=== PATIENT | male | born 1965 | race American Indian/Alaskan Native ===

== ENCOUNTER 2019-04-08 06:29 | Day surgery (SDC) | payer BC ==
[2019-04-08] MEDS ORDERED: LIDOCAINE MPF (2%) 20 MG/1 ML VIAL 5 ML ONE (08:00)
[2019-04-08] MEDS ORDERED: SODIUM CHLORIDE 0.9% 1000 ML 1,000 ML ONE (08:03)
[2019-04-08] MEDS ORDERED: SODIUM CHLORIDE 0.9% 1000 ML 1,000 ML IV SCH (08:15)
--- NOTE | 2019-04-08 08:18 | Anesthesia Consultation ---
Anesthesia Consult and Med Hx Date of service: 04/08/19 - Airway Anesthetic Teeth Evaluation: Good ROM Head & Neck: Adequate Mental/Hyoid Distance: Adequate Mallampati Class: Class III Intubation Access Assessment: Probably Good - Pre-Operative Health Status ASA Pre-Surgery Classification: ASA2 Proposed Anesthetic Plan: MAC - Pulmonary Hx Smoking: No - Cardiovascular System Hx Hypertension: Yes - Central Nervous System Hx Back Pain: Yes - Other Systems Hx Alcohol Use: Yes (Several drinks 3-4/week) - Additional Comments Anesthesia Medical History Comments: Patient is HIV+
--- NOTE | 2019-04-08 08:29 | Operative Report ---
Operative Report Operative Report: OPERATIVE REPORT - EGD DATE 04/08/2016 SURGERY: Upper endoscopy w/ antral biospy SURGEON: Derek Brian M.D. [employer] OPERATOR: n/a PRE OP DX: GERD, morbid obesity POST OP DX: GERD, morbid obesity TYPE OF ANESTHESIA: MAC. ESTIMATED BLOOD LOSS: None. COMPLICATIONS: None. SPECIMENS REMOVED: None. FINDINGS: 1. hiatal hernia. 2. Otherwise, normal esophagus, stomach and first portion of duodenum. INDICATIONS:INDICATION FOR PROCEDURE: Patient is a 53-year-old male with a long history of morbid obesity. He is planned to have a weight loss procedure and is here for preoperative planning EGD. PROCEDURE DETAILS: After consent was reviewed, patient was taken back to the operating room where patient was placed in the left lateral decubitus position and a bite block was placed in the mouth. After a time-out was called, MAC anesthesia was initiated. I then passed the endoscope into his oropharynx, into his esophagus, visualized the entire esophagus, which was all within normal limits. Z-line was measured at about 42 cm from the incisura. I then visualized the stomach and the first portion of the duodenum and there were no abnormalities I could clearly visualize. I then retroflexed the scope in the stomach and visualized the hiatus and I could see a hiatal hernia. A cold biopsy was taken of the antral mucosa to evaulate for h.pylori for comprehensive pre-op for bariatric surgery. I then desufflated the stomach and removed the endoscope. Patient tolerated procedure well and was transferred to recovery room in good and stable condition.
--- NOTE | 2019-04-08 08:29 | Anesthesia Day of Surgery ---
Anesthesia Day of Surgery - Day of Surgery Patient Examined: Yes Patient H&P Reviewed: Yes Patient is NPO: Yes Beta Blockers: No
--- NOTE | 2019-04-08 08:34 | Discharge Summary ---
Providers - Providers Date of Admission: 04/08/2016 Date of discharge: 04/08/19 Attending physician: LICHA LARSEN MD Primary care physician: NON DESTRUCTIVE EVALUATION TECHNICIAN Hospitalization Reason for admission: egd Condition: Good Procedures: egd Hospital course: uneventful egd as part of pre-operative work up for bariatric surgery Disposition: DC-01 TO HOME OR SELFCARE Core Measure Documentation - Palliative Care Palliative Care/ Comfort Measures: Not Applicable - Core Measures Any of the following diagnoses?: none Exam - Physical Exam Narrative exam: unchanged from pre-op exam - Constitutional Vitals: Temp Pulse Resp BP Pulse Ox 98.8 F 82 17 130/80 97 04/08/19 08:05 04/08/19 08:05 04/08/19 08:05 04/08/19 08:05 04/08/19 08:05 Plan Diet: low carbohydrate Follow up with: PRIMARY MD BARTOLO [Primary Care Provider] - 7 Days
[2019-04-08] MEDS ORDERED: PROPOFOL 200 MG/20 ML VIAL IV ONE ×2 (09:27)
[2019-04-08 10:37] VITALS: BP 128/79
--- NOTE | 2019-04-08 10:43 | Post Anesthesia Evaluation ---
- Post Anesthesia Evaluation Patient Participated: Yes Airway Patent: Yes Stable Respiratory Function: Yes Nausea/Vomiting: No Temp > 96.8F: Yes Pain Manageable: Yes Adequeate Hydration: Yes Anesthesia Complications: No
== END 2019-04-08 06:30 | disposition home or self-care (01) ==
LOC: GIO 06:29
PROVIDERS: ATTEND Surgery
DX: K21.9 Gastro-esophageal reflux disease without esophagitis (principal); K29.50 Unspecified chronic gastritis without bleeding; K30 Functional dyspepsia; K44.9 Diaphragmatic hernia without obstruction or gangrene; I10 Essential (primary) hypertension; B96.81 Helicobacter pylori [H. pylori] as the cause of diseases classified elsewhere; E66.01 Morbid (severe) obesity due to excess calories; Z79.899 Other long term (current) drug therapy; Z72.89 Other problems related to lifestyle; Z98.890 Other specified postprocedural states; Z68.36 Body mass index [BMI] 36.0-36.9, adult
CPT/HCPCS: 43239; 88305; 88342; J2704; J7030

== ENCOUNTER 2019-04-14 09:34 | Outpatient (CLI) | payer BC ==
[2019-04-14 09:52] LABS: Hemoglobin 12.2 gm/dl (11.8-15.2); Mean Corpuscular HGB Conc 33 % (32-34); Mean Corpuscular Volume 86 fl (84-94); Platelet Count 317 K/mm3 (140-440); Red Blood Count 4.31 M/mm3 (3.65-5.03)
[2019-04-14 10:16] LABS: Alanine Aminotransferase 17 units/L (7-56); Albumin 3.9 g/dL (3.9-5); BUN/Creatinine Ratio 17; Blood Urea Nitrogen 17 mg/dL (9-20); Calcium 9.6 mg/dL (8.4-10.2); Chol/HDL Ratio 3.12 %; HDL Cholesterol 40 mg/dL (40-59); Hemolysis Index 1; LDL Cholesterol,Direct 80 mg/dL (50-130)
[2019-04-14 12:07] LABS: Basophils % (Manual) 0 % (0.0-1.8); Platelet Estimate Consistent w Auto; RBC Morphology Normal; Total Cells Counted 100
== END 2019-04-14 09:35 | disposition home or self-care (01) ==
LOC: LAB 09:34
PROVIDERS: ATTEND Surgery
DX: Z01.812 Encounter for preprocedural laboratory examination (principal); K30 Functional dyspepsia; E11.9 Type 2 diabetes mellitus without complications
CPT/HCPCS: 36415; 80053; 80061; 82607; 83036; 84443; 85007; 85025

== ENCOUNTER 2019-04-20 07:50 | Outpatient (CLI) | payer BC ==
--- NOTE | 2019-05-03 02:09 | Pulmonary Function Test ---
SPIROMETRY: FVC 3.36 liters, which is 91% of the predicted. FEV1 is 2.56 liters, which is 88% of the predicted. FEV1/FVC ratio is 76. The patient's slow vital capacity is 2.96 liters, which is 76% of the predicted. The patient's MVV is 86% of the predicted. IMPRESSION: Normal spirometry. Based on this spirometry, no obstructive ventilatory impairment; however, restrictive ventilatory impairment cannot rule out based on this spirometry. JOB# [id number] RSDavina/RUI
== END 2019-04-20 07:51 | disposition home or self-care (01) ==
LOC: PF 07:50
PROVIDERS: ATTEND Surgery
DX: E66.2 Morbid (severe) obesity with alveolar hypoventilation (principal)
CPT/HCPCS: 94010

== ENCOUNTER 2021-07-18 11:52 | Outpatient (CLI) | payer BC ==
[2021-07-18 12:50] LABS: Basophils % (Auto) 0.9 % (0.0-1.8); Eosinophils # (Auto) 0.1 K/mm3 (0.0-0.4); Eosinophils % (Auto) 1.4 % (0.0-4.3); Hematocrit 36.5 % (35.5-45.6); Hemoglobin 12.3 gm/dl (11.8-15.2); Lymphocytes % (Auto) 39.6 % (13.4-35.0); Mean Corpuscular HGB Conc 34 % (32-34); Mean Corpuscular Volume 93 fl (84-94); Monocytes # (Auto) 0.6 K/mm3 (0.0-0.8); Monocytes % (Auto) 12.4 % (0.0-7.3); Platelet Count 205 K/mm3 (140-440); Red Blood Count 3.95 M/mm3 (3.65-5.03); Red Cell Distribution Width 14.6 % (13.2-15.2)
[2021-07-18 17:09] LABS: Albumin 4.1 g/dL (3.9-5); Calcium 9.7 mg/dL (8.4-10.2); Chol/HDL Ratio 1.78 %
== END 2021-07-18 11:53 | disposition home or self-care (01) ==
LOC: LAB 11:52
PROVIDERS: ATTEND Surgery
DX: Z01.812 Encounter for preprocedural laboratory examination (principal); Z13.21 Encounter for screening for nutritional disorder; Z13.29 Encounter for screening for other suspected endocrine disorder; Z13.1 Encounter for screening for diabetes mellitus; E55.9 Vitamin D deficiency, unspecified; K30 Functional dyspepsia; E66.01 Morbid (severe) obesity due to excess calories
CPT/HCPCS: 36415; 80053; 80061; 82607; 82728; 83036; 83550; 84443; 85025; 85730

== ENCOUNTER 2021-11-19 09:01 | Outpatient (CLI) | payer BC ==
--- NOTE | 2021-11-19 12:46 | Fluoroscopy Report ---
ESOPHAGRAM INDICATION / CLINICAL INFORMATION: E66.01 K30 TECHNIQUE: Esophagram was performed with double contrast barium and air. COMPARISON: None available. FINDINGS: MOTILITY: No significant abnormality. MUCOSA: No significant abnormality. MASS: None. STRICTURE: None. HIATAL HERNIA: None. REFLUX: Mild BARIUM TABLET: Tablet passed into the stomach without delay. ADDITIONAL FINDINGS: None. Fluoroscopy Time: 1.8 minutes. Fluoroscopy Images: 18. IMPRESSION: 1. Mild reflux, otherwise no significant abnormality Signer Name: Dontae Green DO Signed: 11/19/2021 12:41 PM Workstation Name: [id number]
== END 2021-11-19 09:02 | disposition home or self-care (01) ==
LOC: FLUORO 09:01
PROVIDERS: ATTEND Surgery
DX: Z01.818 Encounter for other preprocedural examination (principal); K21.9 Gastro-esophageal reflux disease without esophagitis; E66.01 Morbid (severe) obesity due to excess calories
CPT/HCPCS: 74221

== ENCOUNTER 2021-12-20 09:17 | Inpatient (IN) | payer BC ==
[2021-12-20] MEDS ORDERED: SODIUM CHLORIDE 0.9% 1000 ML 1,000 ML IV ONE (12:11)
--- NOTE | 2021-12-20 12:30 | Emergency Department Report ---
ED Chest Pain HPI - General Chief Complaint: Chest Pain Time Seen by Provider: 12/20/21 11:50 Source: patient Mode of arrival: Ambulatory Limitations: No Limitations - History of Present Illness Initial Comments: 56-year-old male with a history of hypertension and SVT currently on metoprolol and lisinopril who was sent in from cardiology office while her heart rate was noticed to be fast and is scheduled cardiac stress test this morning. Patient also reports some chest pressure. Patient mentioned that this same thing happened about a month ago and that was when it was started on metoprolol and is hydrochlorothiazide was discontinued. Patient denies any fever or chills. No shortness of breath reported. Patient also denies any other modifying or associated factors. MD Complaint: chest pain, other (palpitation ) - Related Data Home Medications Medication Instructions Recorded Confirmed Last Taken Biktarvy 50-200-25 mg (Nf) 04/08/19 04/08/19 Lisinopril/Hydrochlorothiazide 04/08/19 04/08/19 Pregabalin 04/08/19 04/08/19 valACYclovir 04/08/19 04/08/19 Previous Rx's Medication Instructions Recorded Last Taken Type Metoprolol Xl [Metoprolol 50 mg PO QDAY 30 Days #30 tablet 11/19/21 Unknown Rx SUCCINATE ER TAB] Allergies Allergy/AdvReac Type Severity Reaction Status Date / Time No Known Allergies Allergy Verified 04/08/19 08:03 Heart Score - HEART Score History: Slightly suspicious EKG: Normal Age: 45-65 Risk factors: 1-2 risk factors Troponin: < normal limit HEART Score: 2 - EKG Read Time Time EKG Completed: 10:02 EKG Read Time: 11:05 - Critical Actions Critical Actions: 0-3 pts:0.9-1.7%risk of adverse cardiac event.Candidate for discharge ED Review of Systems ROS: Stated complaint: Other details as noted in HPI Comment: All other systems reviewed and negative Cardiovascular: chest pain, palpitations ED Past Medical Hx - Past Medical History Hx Hypertension: Yes - Social History Smoking Status: Never Smoker - Medications Home Medications: Home Medications Medication Instructions Recorded Confirmed Last Taken Type Biktarvy 50-200-25 mg (Nf) 04/08/19 04/08/19 History Lisinopril/Hydrochlorothiazide 04/08/19 04/08/19 History Pregabalin 04/08/19 04/08/19 History valACYclovir 04/08/19 04/08/19 History Metoprolol Xl [Metoprolol 50 mg PO QDAY 30 Days #30 tablet 11/19/21 Unknown Rx SUCCINATE ER TAB] ED Physical Exam - General Limitations: No Limitations General appearance: alert, in no apparent distress - Head Head exam: Present: normal inspection - Eye Eye exam: Present: normal appearance Pupils: Present: normal accommodation - ENT ENT exam: Present: normal exam, normal orophraynx, mucous membranes dry - Neck Neck exam: Present: normal inspection, full ROM. Absent: tenderness - Respiratory Respiratory exam: Present: normal lung sounds bilaterally. Absent: respiratory distress, accessory muscle use - Cardiovascular Cardiovascular Exam: Present: normal rhythm, tachycardia, normal heart sounds - GI/Abdominal GI/Abdominal exam: Present: soft, normal bowel sounds. Absent: distended, tenderness - Extremities Exam Extremities exam: Present: normal inspection, normal capillary refill. Absent: full ROM, tenderness, pedal edema - Back Exam Back exam: Absent: tenderness - Neurological Exam Neurological exam: Present: alert, oriented X3 - Psychiatric Psychiatric exam: Present: normal affect, normal mood - Skin Skin exam: Present: warm, normal color ED Course Vital Signs 12/20/21 12/20/21 12/20/21 10:50 12:48 13:00 Temperature 98.9 F Pulse Rate 128 H 127 H 124 H Respiratory 18 12 18 Rate Blood Pressure 127/109 Blood Pressure 161/114 [Left] O2 Sat by Pulse 99 96 97 Oximetry 12/20/21 12/20/21 12/20/21 13:23 13:31 14:00 Temperature Pulse Rate 124 H 125 H 126 H Respiratory 15 17 Rate Blood Pressure 145/105 145/105 Blood Pressure [Left] O2 Sat by Pulse 96 96 Oximetry 12/20/21 12/20/21 12/20/21 14:30 15:00 15:30 Temperature Pulse Rate 126 H 126 H 126 H Respiratory 18 14 15 Rate Blood Pressure 143/106 136/101 136/101 Blood Pressure [Left] O2 Sat by Pulse 96 94 97 Oximetry 12/20/21 12/20/21 12/20/21 16:00 16:15 16:30 Temperature Pulse Rate 126 H 128 H 69 Respiratory 15 13 Rate Blood Pressure 136/101 151/111 136/101 Blood Pressure [Left] O2 Sat by Pulse 97 96 Oximetry 12/20/21 12/20/21 12/20/21 17:00 17:30 18:00 Temperature Pulse Rate 86 86 99 H Respiratory 12 14 15 Rate Blood Pressure 151/111 151/111 136/94 Blood Pressure [Left] O2 Sat by Pulse 97 98 96 Oximetry - Consultations Consultation #1: 12/20/21 18:51 Dr Johny FORD Consultation #2: 12/20/21 18:51 Dr Lr INOCENCIA score - Inocencia Score Age > 65: (0) No Aspirin use within the Past 7 Days: (0) No 3 or more CAD Risk Factors: (0) No 2 or more Angina events in past 24 hrs: (0) No Known CAD with more than 50% Stenosis: (0) No Elevated Cardiac Markers: (0) No ST Deviation Greater than 0.5mm: (0) No INOCENCIA Score: 0 ED Medical Decision Making - Lab Data Result diagrams: 12/20/21 12:35 12/20/21 12:35 - EKG Data -: EKG Interpreted by Dc EKG shows normal: sinus rhythm Rate: tachycardia - EKG Data 12/20/21 12:32 noted with SVT at the rate 127 bpm-- in this abnormal ECG 12/20/21 18:19 repeated ECG noted with a-flutter waves at 87 bpm -- with RBBB with prolong QT-- at this point I called and spoke with Dr Mcclain feeder tender from [facility] -- who suggested admitting patient for observation and to increase his metoprolol to 100mg BID and also to start Eliquis 5 mg BID-- Dr Lr consulted for this admission. - Medical Decision Making Here with chest pain/pressure--with palpitation noted to be SVT -- differential could be but not limited to myocardial infarction, pulmonary embolism, costochondritis, anxiety, gastritis, GERD, pancreatitis, and or pyelonephritis--in order to rule out the above-- so will go ahead and order routine cardiopulmonary work-up that include troponin, EKG, chest x-ray, BNP, CKMB, and CBC, CMP and urinalysis for any correctable infectious process or elec trolyte abnormality as a cause. Initial ECG noted with SVT at 127 bpm with history of sVT currently on metoprolol and lisinopril -- Critical care attestation.: If time is entered above; I have spent that time in minutes in the direct care of this critically ill patient, excluding procedure time. ED Disposition Clinical Impression: SVT (supraventricular tachycardia), Palpitations Atrial flutter Qualifiers: Atrial flutter type: unspecified Qualified Code(s): I48.92 - Unspecified atrial flutter Disposition: 09 ADMITTED INPATIENT Is pt being admited?: Yes Does the pt Need Aspirin: No Condition: Stable Referrals: CHARLIE CHA MD [Primary Care Provider] - 3-5 Days Time of Disposition: 18:56
[2021-12-20 13:12] LABS: Alanine Aminotransferase 59 units/L (7-56); Albumin 4.3 g/dL (3.9-5); BUN/Creatinine Ratio 14; Blood Urea Nitrogen 15 mg/dL (9-20); Calcium 8.9 mg/dL (8.4-10.2); Hemolysis Index 2
[2021-12-20 14:42] LABS: Color,Urine Yellow (Yellow)
[2021-12-20 14:51] LABS: RBC,Urine < 1.0 /HPF (0.0-6.0); WBC,Urine < 1.0 /HPF (0.0-6.0)
[2021-12-20 15:01] LABS: INR 1.04 (0.87-1.13)
[2021-12-20 15:02] LABS: Partial Thromboplastin Time 30.9 Sec. (24.2-36.6)
[2021-12-20 15:05] LABS: Amphetamine Screen,Urine Negative; Benzodiazepines Screen,Urine Negative; Cannabinoid Screen,Urine Negative; Cocaine Screen,Urine Negative; Methadone Screen,Urine Negative; Opiate Screen,Urine Negative
--- NOTE | 2021-12-20 15:33 | XRay Report ---
CHEST 2 VIEWS INDICATION: Chest Pain. COMPARISON: None FINDINGS: SUPPORT DEVICES: None. HEART: Within normal limits. LUNGS/PLEURA: No acute air space or interstitial disease. No pneumothorax. ADDITIONAL FINDINGS: None. IMPRESSION: 1. No acute findings. Signer Name: Gee Malin MD Signed: 12/20/2021 3:29 PM Workstation Name: [id number]
[2021-12-20] MEDS ORDERED: dilTIAZem 25 MG/5 ML INJ IV ONE (15:38)
[2021-12-20 16:33] LABS: Basophils % (Auto) 0.7 % (0.0-1.8); Eosinophils # (Auto) 0.1 K/mm3 (0.0-0.4); Eosinophils % (Auto) 2.8 % (0.0-4.3); Hematocrit 40.6 % (35.5-45.6); Hemoglobin 13.3 gm/dl (11.8-15.2); Lymphocytes # (Auto) 1.5 K/mm3 (1.2-5.4); Lymphocytes % (Auto) 35.8 % (13.4-35.0); Mean Corpuscular HGB Conc 33 % (32-34); Mean Corpuscular Volume 98 fl (84-94); Monocytes # (Auto) 0.3 K/mm3 (0.0-0.8); Monocytes % (Auto) 7.2 % (0.0-7.3); Platelet Count 135 K/mm3 (140-440); Red Blood Count 4.15 M/mm3 (3.65-5.03); Red Cell Distribution Width 15.4 % (13.2-15.2)
[2021-12-20] MEDS ORDERED: MORPHINE 4 MG/1 ML INJ IV PRN (18:30)
[2021-12-20] MEDS ORDERED: ONDANSETRON 4 MG/2 ML INJ IV PRN (18:30)
[2021-12-20] MEDS ORDERED: ACETAMINOPHEN 325 MG TAB PO PRN (18:30)
[2021-12-20] MEDS ORDERED: oxyCODONE /ACETAMINOPHEN 5-325MG TAB PO PRN (18:30)
--- NOTE | 2021-12-20 18:32 | History and Physical Report ---
History of Present Illness Chief complaint: My heart is beating fast History of present illness: 56 YO Male with HIV Infection, HTN, Peripheral Neuropathy presents to ED for evaluation. Patient reports "my heart is beating fast". Patient states that he was seen and evaluated in his toxicologist office and was found to have a rapid heart rate. Patient was instructed to seek further care at [facility]. Patient seen and evaluated in the emergency department. All lab and imaging studies reviewed. Patient acknowledges decreased exercise tolerance, lower extremity edema. Patient underwent EKG upon arrival to the emergency department and was found to have atrial flutter as well as clinical symptoms consistent with new onset CHF decompensation. Patient mated to telemetry and initiated on CHF protocol. Cardiology team consulted in ED. Patient admitted to telemetry due to increased risk of worsening symptoms as well as medical stabilization. Patient initiated on rate control therapy as well as therapeutic anticoagulation in the emergency department. Patient acknowledges chest palpitations but denies fever, chills, chest pain, productive cough, skin rash, recent contact, known exposure to COVID-19. No prior admission for review. All medication listed at time of admission has been reconciled. Advanced care planning conducted in ED. Past History Past Medical History: hypertension Past Surgical History: No surgical history, Other (Reviewed) Social history: single. denies: smoking, alcohol abuse, prescription drug abuse Family history: hypertension Medications and Allergies Allergies Allergy/AdvReac Type Severity Reaction Status Date / Time No Known Allergies Allergy Verified 04/08/19 08:03 Home Medications Medication Instructions Recorded Confirmed Last Taken Type Biktarvy 50-200-25 mg (Nf) 04/08/19 04/08/19 History Lisinopril/Hydrochlorothiazide 04/08/19 04/08/19 History Pregabalin 04/08/19 04/08/19 History valACYclovir 04/08/19 04/08/19 History Metoprolol Xl [Metoprolol 50 mg PO QDAY 30 Days #30 tablet 11/19/21 Unknown Rx SUCCINATE ER TAB] Review of Systems Constitutional: no weight loss, no weight gain, no fever, no chills Ears, nose, mouth and throat: no ear pain, no ear discharge, no decreased hearing, no nose pain Cardiovascular: shortness of breath, leg edema, decreased exercise tolerance, no chest pain Respiratory: no cough, no cough with sputum, no shortness of breath Gastrointestinal: no nausea, no vomiting, no constipation Genitourinary Male: no hematuria, no flank pain, no urinary frequency, no urinary hesitancy, no nocturia Rectal: no pain, no incontinence, no bleeding Musculoskeletal: no neck stiffness, no neck pain, no arm numbness/tingling, no low back pain, no shooting leg pain Integumentary: no rash, no pruritis, no redness, no sores, no wounds, no jaundice Neurological: no head injury, no transient paralysis, no parathesias, no tingling, no seizures, no syncope Psychiatric: no anxiety, no sleep disturbances, no change in appetite, no change in libido, no disorientation Endocrine: no cold intolerance, no heat intolerance, no excessive thirst, no polydipsia, no nocturia, no excessive sweating Hematologic/Lymphatic: no easy bruising, no easy bleeding, no lymphedema Allergic/Immunologic: no urticaria, no allergic rhinitis, no persistent infections Exam - Constitutional Vitals: Temp Pulse Resp BP Pulse Ox 98.9 F 99 H 15 136/94 96 12/20/21 10:50 12/20/21 18:00 12/20/21 18:00 12/20/21 18:00 12/20/21 18:00 General appearance: Present: mild distress - EENT Eyes: Present: PERRL ENT: hearing intact, clear oral mucosa - Respiratory Respiratory effort: normal Respiratory: bilateral: CTA, rales - Cardiovascular Rhythm: irregularly irregular - Extremities Extremity abnormal: edema Peripheral Pulses: within normal limits - Abdominal General gastrointestinal: Present: soft, non-tender, non-distended, normal bowel sounds Male genitourinary: Present: normal - Integumentary Integumentary: Present: clear, warm, dry - Musculoskeletal Musculoskeletal: gait normal, strength equal bilaterally - Psychiatric Psychiatric: appropriate mood/affect, intact judgment & insight - Neurologic Neurologic: CNII-XII intact, moves all extremities HEART Score - HEART Score EKG: Normal Age: 45-65 Risk factors: 1-2 risk factors Troponin: Troponin T < 0.010 ng/mL (0.00-0.029) 12/20/21 12:35 Troponin: < normal limit - Critical Actions Critical Actions: 0-3 pts:0.9-1.7%risk of adverse cardiac event.Candidate for discharge Results - Labs CBC & Chem 7: 12/20/21 12:35 12/20/21 12:35 Labs: Abnormal lab results 12/20/21 12/20/21 Range/Units 12:35 12:35 WBC 4.1 L (4.5-11.0) K/mm3 MCV 98 H (84-94) fl RDW 15.4 H (13.2-15.2) % Plt Count 135 L (140-440) K/mm3 Lymph % (Auto) 35.8 H (13.4-35.0) % Chloride 107.1 H (98-107) mmol/L Glucose 107 H (75-100) mg/dL AST 91 H (5-40) units/L ALT 59 H (7-56) units/L Assessment and Plan - Patient Problems (1) Atrial flutter Current Visit: Yes Status: Acute Qualifiers: Atrial flutter type: unspecified Qualified Code(s): I48.92 - Unspecified atrial flutter Plan to address problem: Cardiology team consulted in ED, patient, thyroid panel, further care and evaluation as per cardiology team, continue therapeutic anticoagulation as per cardiology team recommendation, supportive care. Telemetry monitoring. (2) CHF (congestive heart failure) Current Visit: Yes Status: Suspected Qualifiers: Heart failure chronicity: acute Plan to address problem: Strict I's/O, monitoring output every shift, daily weight, afterload reduction, blood pressure control, echocardiogram ordered and pending at time of admission, thyroid panel, magnesium level, cardiology team consulted in ED. Further care and evaluation as per cardiology team. (3) HIV infection Current Visit: Yes Status: Acute Qualifiers: HIV symptom status: unspecified Qualified Code(s): B20 - Human immunodeficiency virus [HIV] disease Plan to address problem: Continue antiretroviral therapy, supportive care. Outpatient infectious disease service follow-up. (4) Hypertension Current Visit: Yes Status: Acute Qualifiers: Hypertension type: primary hypertension Qualified Code(s): I10 - Essential (primary) hypertension Plan to address problem: Monitor blood pressure every shift, continue medical management (5) DVT prophylaxis Current Visit: Yes Status: Acute Plan to address problem: SCD to bilateral lower extremities while in bed (6) Advance care planning Current Visit: Yes Status: Acute Plan to address problem: Disease education data, care plan discussed, diagnosis discussed, prognosis discussed, patient is full code. Patient knowledges understanding and agreement with care plan, +30 minutes. (7) Preventative health care Current Visit: Yes Status: Acute Plan to address problem: Patient counseled regarding risk factor reduction, outpatient follow-up with primary care physician for all age and risk factor appropriate screening test. +30 minutes.
[2021-12-20 21:29] LABS: Free T4 (Free Thyroxine) 1.17 ng/dL (0.76-1.46)
[2021-12-21 06:33] LABS: BUN/Creatinine Ratio 13; Blood Urea Nitrogen 13 mg/dL (9-20); Calcium 8.7 mg/dL (8.4-10.2); Hemolysis Index 0
--- NOTE | 2021-12-21 10:02 | Consultation ---
History of Present Illness Consult date: 12/21/21 Requesting physician: CLAU CORREA Consult reason: other (atrial flutter) History of present illness: Pt is a 56-year-old male with a hx of HIV, HTN, obesity, and prior cocaine use who was sent from the office after being scheduled for a stress test but found to be tachycardic. Pt denies any cardiac complaints. He was previously followed by [facility] (Dr. Tapan Kaur) and has an upcoming consult with Dr. Ellington in our [place] office (01/13 @ 2:30pm). Pt was evaluated by Dr. Kaur on 2 instances (03/2020 & 12/2020) after being sent in from [facility] when he was noted to be in an atrial arrhythmia, which Dr. Kaur stated was difficult to distinguish (atrial fibrillation vs atrial flutter vs atrial tachycardia per Dr. Kaur's notes). Pt was not started on any AV michael blocking agents during the fi rst instance in March 2020 due to being mildly bradycardic by the time he was evaluated in the Cardiology Clinic. Pt was started on Toprol XL 50mg daily at the last office visit in December 2020. He has been taking his beta hayden regularly. He is noted to be in atrial flutter with a ventricular rate in the 120-130s upon assessment. Of note, pt was never started on oral anticoagulation due to his low CHADS-Vasc score per documentation and takes ASA only. Past History Past Medical History: arrhythmia, HIV/AIDS, hypertension Past Surgical History: denies: valve replacement, CABG, PTCA Social history: single, Lives alone, alcohol abuse (occasional), other (cocaine abuse). denies: smoking Family history: diabetes (mother), hypertension (mother) Medications and Allergies Allergies Allergy/AdvReac Type Severity Reaction Status Date / Time No Known Allergies Allergy Verified 04/08/19 08:03 Home Medications Medication Instructions Recorded Confirmed Last Taken Type Biktarvy 50-200-25 mg (Nf) 04/08/19 04/08/19 History Lisinopril/Hydrochlorothiazide 04/08/19 04/08/19 History Pregabalin 04/08/19 04/08/19 History valACYclovir 04/08/19 04/08/19 History Metoprolol Xl [Metoprolol 50 mg PO QDAY 30 Days #30 tablet 11/19/21 Unknown Rx SUCCINATE ER TAB] Active Meds: Active Medications Acetaminophen (Acetaminophen 325 Mg Tab) 650 mg PO Q4H PRN PRN Reason: Pain MILD(1-3)/Fever >100.5/TRUONG Morphine Sulfate (Morphine 4 Mg/1 Ml Inj) 2 mg IV Q4H PRN PRN Reason: Pain , Severe (7-10) Ondansetron HCl (Ondansetron 4 Mg/2 Ml Inj) 4 mg IV Q8H PRN PRN Reason: Nausea And Vomiting Oxycodone/Acetaminophen (Oxycodone /Acetaminophen 5-325mg Tab) 1 tab PO Q6H PRN PRN Reason: Pain, Moderate (4-6) Sodium Chloride (Sodium Chloride 0.9% 10 Ml Flush Syringe) 10 ml IV BID BRONSON Last Admin: 12/21/21 09:37 Dose: 10 ml Sodium Chloride (Sodium Chloride 0.9% 10 Ml Flush Syringe) 10 ml IV PRN PRN PRN Reason: LINE FLUSH Review of Systems Constitutional: no fever, no chills Ears, nose, mouth and throat: no nasal congestion, no sore throat Cardiovascular: no chest pain, no palpitations, no edema, no syncope, no lightheadedness, no shortness of breath Respiratory: no cough, no shortness of breath Gastrointestinal: no abdominal pain, no nausea Genitourinary Male: no dysuria Musculoskeletal: no myalgias Integumentary: no rash, no wounds Neurological: no numbness, no tingling, no seizures, no syncope, no vertigo Endocrine: no cold intolerance, no heat intolerance Hematologic/Lymphatic: no easy bruising, no easy bleeding Allergic/Immunologic: no anaphylaxis Physical Examination Vital Signs Temp Pulse Resp BP Pulse Ox 98.9 F 128 H 18 161/114 99 12/20/21 10:50 12/20/21 10:50 12/20/21 10:50 12/20/21 10:50 12/20/21 10:50 General appearance: no acute distress HEENT: Positive: EOMI, Normocephaly Neck: Negative: JVD/HJR Cardiac: Positive: irregularly irregular, S1/S2 Lungs: Positive: clear to auscultation Neuro: Positive: Grossly Intact Abdomen: Positive: Soft. Negative: Tender Skin: Negative: Rash Musculoskeletal: No Pain Extremities: Present: edema, warm Results 12/20/21 12:35 12/21/21 05:36 Cardiac Enzymes 12/20/21 Range/Units 12:35 AST 91 H (5-40) units/L Coagulation 12/20/21 Range/Units 12:35 PT 14.8 (12.2-14.9) Sec. INR 1.04 (0.87-1.13) APTT 30.9 (24.2-36.6) Sec. CBC 12/20/21 Range/Units 12:35 WBC 4.1 L (4.5-11.0) K/mm3 RBC 4.15 (3.65-5.03) M/mm3 Hgb 13.3 (11.8-15.2) gm/dl Hct 40.6 (35.5-45.6) % Plt Count 135 L (140-440) K/mm3 Lymph # (Auto) 1.5 (1.2-5.4) K/mm3 [place] # (Auto) 0.3 (0.0-0.8) K/mm3 Eos # (Auto) 0.1 (0.0-0.4) K/mm3 Baso # (Auto) 0.0 (0.0-0.1) K/mm3 Comprehensive Metabolic Panel 12/20/21 12/21/21 Range/Units 12:35 05:36 Sodium 142 149 H (137-145) mmol/L Potassium 4.6 3.9 (3.6-5.0) mmol/L Chloride 107.1 H 113.2 H (98-107) mmol/L Carbon Dioxide 26 26 (22-30) mmol/L BUN 15 13 (9-20) mg/dL Creatinine 1.1 1.0 (0.8-1.3) mg/dL Glucose 107 H 133 H (75-100) mg/dL Calcium 8.9 8.7 (8.4-10.2) mg/dL AST 91 H (5-40) units/L ALT 59 H (7-56) units/L Alkaline Phosphatase 107 (35-129) units/L Total Protein 6.8 (6.3-8.2) g/dL Albumin 4.3 (3.9-5) g/dL - Imaging and Cardiology Echo: pending, other (04/2020: EF 60-65%, no significant valvular abnormalities) EKG: report reviewed, image reviewed EKG interpretations - Telemetry EKG Rhythm: Atrial Flutter - EKG Supraventricular dysrhythmia: atrial flutter Assessment and Plan Assessment: ATRIAL FLUTTER WITH RVR HTN Obesity HIV+ H/o Cocaine Use Plan: Echo pending. Increase PO Lopressor 25mg TID with hold parameters. Add PO Amiodarone 400mg BID. Trend LFTs. Start Eliquis 5mg BID for CVA prophylaxis. Monitor Plts. Pt seen in conjunction with Dr. Ermelinda Agarwal, who agrees with the assessment and plan of care. - Patient Problems (1) Atrial flutter Current Visit: Yes Status: Acute Qualifiers: Qualified Code(s): I48.92 - Unspecified atrial flutter (2) History of cocaine use Current Visit: Yes Status: Chronic (3) HIV infection Current Visit: Yes Status: Chronic Qualifiers: HIV symptom status: unspecified Qualified Code(s): B20 - Human immunodeficiency virus [HIV] disease (4) Hypertension Current Visit: Yes Status: Chronic Qualifiers: Hypertension type: primary hypertension Qualified Code(s): I10 - Essential (primary) hypertension (5) Obesity Current Visit: Yes Status: Chronic
[2021-12-21] MEDS ORDERED: METOPROLOL TARTRATE 25 MG TAB PO SCH ×2 (12:00→20:00)
[2021-12-21] MEDS ORDERED: BIKTARVY PO SCH (12:00)
--- NOTE | 2021-12-21 13:42 | Progress Note ---
Assessment and Plan Assessment and plan: #Tachyarrhythmia #Atrial flutter -metoprolol 25mg BID started for rate control other agents per Cardiology service -Cardiology consulted, assistance appreciated -Echocardiogram performed, result pending -continue telemetry -systemic anticoagulation not started as outpatient since patient has CHADSVASC 1 #Hypertension -patient takes HCTZ and metoprolol at home -lisinopril discontinued when BB started -will continue with BB as above #HIV -Restart Biktarvy at home dose #Obesity #Weight loss counseling #Exercise counseling - Counseled patient on the importance of weight loss, incorporating exercise, and dietary changes (lean meats, fresh fruits and vegetables, and water intake). Patient expresses understanding. - Time: +15 min #Advanced care planning -Disease education conducted, care plan discussed, diagnoses discussed, prognosis discussed, and patient acknowledges understanding with care plan -Time: +30 min History Interval history: No acute events overnight. Patient reports dealing with tachycardia for several years. He was started on metoprolol 50 mg XL by her hand screen printer a few months ago. He denies any lightheadedness, dizziness, palpitations, or chest discomfort. We discussed current care plan and patient agreeable. Hospitalist Physical - Physical exam Narrative exam: GENERAL: Well-developed well-nourished. Sitting on the side of the bed in no acute distress. HEENT: Normocephalic. Atraumatic. NECK: Supple. CHEST/LUNGS: CTAB on room air HEART/CARDIOVASCULAR: Tachycardia. No murmur, rubs or gallops appreciated. ABDOMEN: +BS. NT/ND. SKIN: No rashes noted. NEURO: No focal motor deficit. Follows all commands. MUSCULOSKELETAL: No joint effusion EXTREMITIES: No cyanosis, clubbing. 1+ edema of BLE PSYCH: Cooperative. - Constitutional Vitals: Temp Pulse Resp BP Pulse Ox 97.9 F 129 H 22 136/101 100 12/20/21 23:56 12/20/21 23:56 12/20/21 23:56 12/20/21 23:56 12/21/21 10:00 General appearance: Present: mild distress HEART Score - HEART Score EKG: Normal Age: 45-65 Risk factors: 1-2 risk factors Troponin: Troponin T < 0.010 ng/mL (0.00-0.029) 12/20/21 12:35 Troponin: < normal limit - Critical Actions Critical Actions: 0-3 pts:0.9-1.7%risk of adverse cardiac event.Candidate for discharge Results - Labs CBC & Chem 7: 12/20/21 12:35 12/21/21 05:36 Labs: Laboratory Last Values WBC 4.1 K/mm3 (4.5-11.0) L 12/20/21 12:35 RBC 4.15 M/mm3 (3.65-5.03) 12/20/21 12:35 Hgb 13.3 gm/dl (11.8-15.2) 12/20/21 12:35 Hct 40.6 % (35.5-45.6) 12/20/21 12:35 MCV 98 fl (84-94) H 12/20/21 12:35 MCH 32 pg (28-32) 12/20/21 12:35 MCHC 33 % (32-34) 12/20/21 12:35 RDW 15.4 % (13.2-15.2) H 12/20/21 12:35 Plt Count 135 K/mm3 (140-440) L 12/20/21 12:35 Lymph % (Auto) 35.8 % (13.4-35.0) H 12/20/21 12:35 [place] % (Auto) 7.2 % (0.0-7.3) 12/20/21 12:35 Eos % (Auto) 2.8 % (0.0-4.3) 12/20/21 12:35 Baso % (Auto) 0.7 % (0.0-1.8) 12/20/21 12:35 Lymph # (Auto) 1.5 K/mm3 (1.2-5.4) 12/20/21 12:35 [place] # (Auto) 0.3 K/mm3 (0.0-0.8) 12/20/21 12:35 Eos # (Auto) 0.1 K/mm3 (0.0-0.4) 12/20/21 12:35 Baso # (Auto) 0.0 K/mm3 (0.0-0.1) 12/20/21 12:35 Seg Neutrophils % 53.5 % (40.0-70.0) 12/20/21 12:35 Seg Neutrophils # 2.2 K/mm3 (1.8-7.7) 12/20/21 12:35 PT 14.8 Sec. (12.2-14.9) 12/20/21 12:35 INR 1.04 (0.87-1.13) 12/20/21 12:35 APTT 30.9 Sec. (24.2-36.6) 12/20/21 12:35 D-Dimer < 135.00 ng/mlDDU (0-234) 12/20/21 12:35 Sodium 149 mmol/L (137-145) H 12/21/21 05:36 Potassium 3.9 mmol/L (3.6-5.0) 12/21/21 05:36 Chloride 113.2 mmol/L (98-107) H 12/21/21 05:36 Carbon Dioxide 26 mmol/L (22-30) 12/21/21 05:36 Anion Gap 14 mmol/L 12/21/21 05:36 BUN 13 mg/dL (9-20) 12/21/21 05:36 Creatinine 1.0 mg/dL (0.8-1.3) 12/21/21 05:36 Estimated GFR > 60 ml/min 12/21/21 05:36 BUN/Creatinine Ratio 13 % 12/21/21 05:36 Glucose 133 mg/dL (75-100) H 12/21/21 05:36 Calcium 8.7 mg/dL (8.4-10.2) 12/21/21 05:36 Magnesium 2.40 mg/dL (1.7-2.3) H 12/20/21 19:52 Total Bilirubin 0.50 mg/dL (0.1-1.2) 12/20/21 12:35 AST 91 units/L (5-40) H 12/20/21 12:35 ALT 59 units/L (7-56) H 12/20/21 12:35 Alkaline Phosphatase 107 units/L (35-129) 12/20/21 12:35 Troponin T < 0.010 ng/mL (0.00-0.029) 12/20/21 12:35 Total Protein 6.8 g/dL (6.3-8.2) 12/20/21 12:35 Albumin 4.3 g/dL (3.9-5) 12/20/21 12:35 Albumin/Globulin Ratio 1.7 % 12/20/21 12:35 TSH 0.954 mlU/mL (0.270-4.200) 12/20/21 19:52 Free T4 1.17 ng/dL (0.76-1.46) 12/20/21 19:52 Urine Color Yellow (Yellow) 12/20/21 12:42 Urine Turbidity Clear (Clear) 12/20/21 12:42 Specific [place] (Man) 1.010 (1.003-1.030) 12/20/21 12:42 Ur Protein (Man) 1+ mg/dL (Negative) 12/20/21 12:42 Ur Ketones (Man) Negative (Negative) 12/20/21 12:42 Urine Bilirubin (Man) Negative (Negative) 12/20/21 12:42 Urine WBC (Auto) < 1.0 /HPF (0.0-6.0) 12/20/21 12:42 Urine RBC (Auto) < 1.0 /HPF (0.0-6.0) 12/20/21 12:42 Urine RBC (Manual) Negative (Negative) 12/20/21 12:42 Urine Opiates Screen Negative 12/20/21 12:42 Urine Methadone Screen Negative 12/20/21 12:42 Ur Barbiturates Screen Negative 12/20/21 12:42 Ur Phencyclidine Scrn Negative 12/20/21 12:42 Ur Amphetamines Screen Negative 12/20/21 12:42 U Benzodiazepines Scrn Negative 12/20/21 12:42 Urine Cocaine Screen Negative 12/20/21 12:42 U Marijuana (THC) Screen Negative 12/20/21 12:42 Drugs of Abuse Note Disclamer 12/20/21 12:42 Active Medications - Current Medications Current Medications: Generic Name Dose Route Start Last Admin Trade Name Freq PRN Reason Stop Dose Admin Acetaminophen 650 mg 12/20/21 18:30 Acetaminophen 325 Mg Tab PO Q4H PRN Pain MILD(1-3)/Fever >100.5/TRUONG Dolutegravir Sodium 50 mg 12/22/21 10:00 Dolutegravir 50 Mg Tab PO QDAY [facility] Emtricitabine 200 mg 12/22/21 10:00 Emtricitabine 200 Mg Cap PO QDAY [facility] Metoprolol Tartrate 25 mg 12/21/21 12:00 12/21/21 11:05 Metoprolol Tartrate 25 Mg Tab PO 25 mg BID BRONSON Administration Morphine Sulfate 2 mg 12/20/21 18:30 Morphine 4 Mg/1 Ml Inj IV Q4H PRN Pain , Severe (7-10) Ondansetron HCl 4 mg 12/20/21 18:30 Ondansetron 4 Mg/2 Ml Inj IV Q8H PRN Nausea And Vomiting Oxycodone/Acetaminophen 1 tab 12/20/21 18:30 Oxycodone /Acetaminophen 5-325mg Tab PO Q6H PRN Pain, Moderate (4-6) Sodium Chloride 10 ml 12/20/21 22:00 12/21/21 09:37 Sodium Chloride 0.9% 10 Ml Flush Syringe IV 10 ml BID BRONSON Administration Sodium Chloride 10 ml 12/20/21 18:30 Sodium Chloride 0.9% 10 Ml Flush Syringe IV PRN PRN LINE FLUSH Tenofovir Disoproxil Fumarate 300 mg 12/22/21 10:00 Tenofovir 300 Mg Tab PO QDAY BRONSON
[2021-12-21] MEDS ORDERED: METOPROLOL TARTRATE 5 MG/5 ML INJ IV SCH (19:00)
[2021-12-21] MEDS: AMIODARONE 200 MG TAB PO SCH (21:30)
[2021-12-21] MEDS: APIXABAN 5 MG TAB PO SCH (21:30)
[2021-12-21 21:38] LABS: INR 1.08 (0.87-1.13)
[2021-12-21 21:39] LABS: Partial Thromboplastin Time 28.7 Sec. (24.2-36.6)
--- NOTE | 2021-12-22 09:54 | Progress Note ---
Assessment and Plan Assessment and plan: #Tachyarrhythmia #Atrial flutter -metoprolol increased to 37.5 mg 3 times daily, continue amiodarone -Cardiology following, assistance appreciated -Echocardiogram 12/22: EF 25-30%, severely dilated LA, moderate pulmonary HTN -continue telemetry -eliquis started for anticoagulation #Systolic heart failure -EF 25-30% -continue BB, will leave GDMT decision to Cardiology -does not appear to be in acute exacerbation at this time #Hypertension -patient take takes HCTZ at home, lisinopril discontinued when he was started on metoprolol XL -will hold HCTZ for now -continue BB as above -will continue to monitor #HIV -Restart Biktarvy at home dose #Obesity #Weight loss counseling #Exercise counseling - Counseled patient on the importance of weight loss, incorporating exercise, and dietary changes (lean meats, fresh fruits and vegetables, and water intake). Patient expresses understanding. - Time: +15 min #Advanced care planning -Disease education conducted, care plan discussed, diagnoses discussed, prognosis discussed, and patient acknowledges understanding with care plan -Time: +30 min History Interval history: No acute events overnight. Patient has no complaints at this time. We discussed medication changes and current care plan. Hospitalist Physical - Physical exam Narrative exam: GENERAL: Well-developed well-nourished. Sitting on the side of the bed in no acute distress eating breakfast. HEENT: Normocephalic. Atraumatic. CHEST/LUNGS: CTAB on room air HEART/CARDIOVASCULAR: Tachycardia. No murmur, rubs or gallops appreciated. ABDOMEN: +BS. NT/ND. SKIN: No rashes noted. NEURO: No focal motor deficit. Follows all commands. MUSCULOSKELETAL: No joint effusion EXTREMITIES: 1+ BLE edema. PSYCH: Cooperative. - Constitutional Vitals: Temp Pulse Resp BP Pulse Ox 98.0 F 124 H 18 142/98 97 12/22/21 07:51 12/22/21 07:51 12/22/21 07:51 12/22/21 07:51 12/22/21 07:51 General appearance: Present: no acute distress HEART Score - HEART Score EKG: Normal Age: 45-65 Risk factors: 1-2 risk factors Troponin: Troponin T < 0.010 ng/mL (0.00-0.029) 12/20/21 12:35 Troponin: < normal limit - Critical Actions Critical Actions: 0-3 pts:0.9-1.7%risk of adverse cardiac event.Candidate for discharge Results - Labs CBC & Chem 7: 12/20/21 12:35 12/21/21 05:36 Labs: Laboratory Last Values WBC 4.1 K/mm3 (4.5-11.0) L 12/20/21 12:35 RBC 4.15 M/mm3 (3.65-5.03) 12/20/21 12:35 Hgb 13.3 gm/dl (11.8-15.2) 12/20/21 12:35 Hct 40.6 % (35.5-45.6) 12/20/21 12:35 MCV 98 fl (84-94) H 12/20/21 12:35 MCH 32 pg (28-32) 12/20/21 12:35 MCHC 33 % (32-34) 12/20/21 12:35 RDW 15.4 % (13.2-15.2) H 12/20/21 12:35 Plt Count 135 K/mm3 (140-440) L 12/20/21 12:35 Lymph % (Auto) 35.8 % (13.4-35.0) H 12/20/21 12:35 [place] % (Auto) 7.2 % (0.0-7.3) 12/20/21 12:35 Eos % (Auto) 2.8 % (0.0-4.3) 12/20/21 12:35 Baso % (Auto) 0.7 % (0.0-1.8) 12/20/21 12:35 Lymph # (Auto) 1.5 K/mm3 (1.2-5.4) 12/20/21 12:35 [place] # (Auto) 0.3 K/mm3 (0.0-0.8) 12/20/21 12:35 Eos # (Auto) 0.1 K/mm3 (0.0-0.4) 12/20/21 12:35 Baso # (Auto) 0.0 K/mm3 (0.0-0.1) 12/20/21 12:35 Seg Neutrophils % 53.5 % (40.0-70.0) 12/20/21 12:35 Seg Neutrophils # 2.2 K/mm3 (1.8-7.7) 12/20/21 12:35 PT 15.2 Sec. (12.2-14.9) H 12/21/21 21:09 INR 1.08 (0.87-1.13) 12/21/21 21:09 APTT 28.7 Sec. (24.2-36.6) 12/21/21 21:09 D-Dimer < 135.00 ng/mlDDU (0-234) 12/20/21 12:35 Sodium 149 mmol/L (137-145) H 12/21/21 05:36 Potassium 3.9 mmol/L (3.6-5.0) 12/21/21 05:36 Chloride 113.2 mmol/L (98-107) H 12/21/21 05:36 Carbon Dioxide 26 mmol/L (22-30) 12/21/21 05:36 Anion Gap 14 mmol/L 12/21/21 05:36 BUN 13 mg/dL (9-20) 12/21/21 05:36 Creatinine 1.0 mg/dL (0.8-1.3) 12/21/21 05:36 Estimated GFR > 60 ml/min 12/21/21 05:36 BUN/Creatinine Ratio 13 % 12/21/21 05:36 Glucose 133 mg/dL (75-100) H 12/21/21 05:36 Calcium 8.7 mg/dL (8.4-10.2) 12/21/21 05:36 Magnesium 2.40 mg/dL (1.7-2.3) H 12/20/21 19:52 Total Bilirubin 0.50 mg/dL (0.1-1.2) 12/20/21 12:35 AST 91 units/L (5-40) H 12/20/21 12:35 ALT 59 units/L (7-56) H 12/20/21 12:35 Alkaline Phosphatase 107 units/L (35-129) 12/20/21 12:35 Troponin T < 0.010 ng/mL (0.00-0.029) 12/20/21 12:35 Total Protein 6.8 g/dL (6.3-8.2) 12/20/21 12:35 Albumin 4.3 g/dL (3.9-5) 12/20/21 12:35 Albumin/Globulin Ratio 1.7 % 12/20/21 12:35 TSH 0.954 mlU/mL (0.270-4.200) 12/20/21 19:52 Free T4 1.17 ng/dL (0.76-1.46) 12/20/21 19:52 Urine Color Yellow (Yellow) 12/20/21 12:42 Urine Turbidity Clear (Clear) 12/20/21 12:42 Specific [place] (Man) 1.010 (1.003-1.030) 12/20/21 12:42 Ur Protein (Man) 1+ mg/dL (Negative) 12/20/21 12:42 Ur Ketones (Man) Negative (Negative) 12/20/21 12:42 Urine Bilirubin (Man) Negative (Negative) 12/20/21 12:42 Urine WBC (Auto) < 1.0 /HPF (0.0-6.0) 12/20/21 12:42 Urine RBC (Auto) < 1.0 /HPF (0.0-6.0) 12/20/21 12:42 Urine RBC (Manual) Negative (Negative) 12/20/21 12:42 Urine Opiates Screen Negative 12/20/21 12:42 Urine Methadone Screen Negative 12/20/21 12:42 Ur Barbiturates Screen Negative 12/20/21 12:42 Ur Phencyclidine Scrn Negative 12/20/21 12:42 Ur Amphetamines Screen Negative 12/20/21 12:42 U Benzodiazepines Scrn Negative 12/20/21 12:42 Urine Cocaine Screen Negative 12/20/21 12:42 U Marijuana (THC) Screen Negative 12/20/21 12:42 Drugs of Abuse Note Disclamer 12/20/21 12:42 [place]/IV: Voiding Method Toilet Active Medications - Current Medications Current Medications: Generic Name Dose Route Start Last Admin Trade Name Freq PRN Reason Stop Dose Admin Acetaminophen 650 mg 12/20/21 18:30 Acetaminophen 325 Mg Tab PO Q4H PRN Pain MILD(1-3)/Fever >100.5/TRUONG Amiodarone HCl 400 mg 12/21/21 22:00 12/21/21 21:30 Amiodarone 200 Mg Tab PO 400 mg BID BRONSON Administration Apixaban 5 mg 12/21/21 22:00 12/21/21 21:30 Apixaban 5 Mg Tab PO 5 mg Q12HR [facility] Administration Protocol Dolutegravir Sodium 50 mg 12/22/21 10:00 Dolutegravir 50 Mg Tab PO QDAY [facility] Emtricitabine 200 mg 12/22/21 10:00 Emtricitabine 200 Mg Cap PO QDAY [facility] Metoprolol Tartrate 37.5 mg 12/22/21 09:47 Metoprolol Tartrate 25 Mg Tab PO TID [facility] Morphine Sulfate 2 mg 12/20/21 18:30 Morphine 4 Mg/1 Ml Inj IV Q4H PRN Pain , Severe (7-10) Ondansetron HCl 4 mg 12/20/21 18:30 Ondansetron 4 Mg/2 Ml Inj IV Q8H PRN Nausea And Vomiting Oxycodone/Acetaminophen 1 tab 12/20/21 18:30 Oxycodone /Acetaminophen 5-325mg Tab PO Q6H PRN Pain, Moderate (4-6) Sodium Chloride 10 ml 12/20/21 22:00 12/21/21 21:30 Sodium Chloride 0.9% 10 Ml Flush Syringe IV 10 ml BID BRONSON Administration Sodium Chloride 10 ml 12/20/21 18:30 Sodium Chloride 0.9% 10 Ml Flush Syringe IV PRN PRN LINE FLUSH Tenofovir Disoproxil Fumarate 300 mg 12/22/21 10:00 Tenofovir 300 Mg Tab PO QDAY [facility]
[2021-12-22] MEDS ORDERED: METOPROLOL TARTRATE 25 MG TAB PO SCH ×2 (12:00→14:00)
[2021-12-22] MEDS: AMIODARONE 200 MG TAB PO SCH (12:47)
[2021-12-22] MEDS: APIXABAN 5 MG TAB PO SCH ×2 (12:48→22:30)
[2021-12-22] MEDS: EMTRICITABINE 200 MG CAP PO SCH (12:48)
[2021-12-22] MEDS: DOLUTEGRAVIR 50 MG TAB PO SCH (12:51)
[2021-12-22] MEDS: TENOFOVIR 300 MG TAB PO SCH (12:52)
--- NOTE | 2021-12-22 14:48 | Progress Note ---
Assessment and Plan Assessment: ATRIAL FLUTTER WITH RVR Cardiomyopathy Moderate Pulmonary HTN HTN Obesity ?RHONDA HIV+ H/o Cocaine Use Plan: Echo reviewed - severe global LV hypokinesis, EF 25-30%, restrictive physiology, moderate LVH, RV mildly dilated, RVSF moderately reduced, LA severely dilated, RA moderately dilated, moderate TR, RVSP 50-55mmHg, moderate pulm HTN. Stop PO Amiodarone. Initiate IV Amiodarone gtt. Trend LFTs. F/u CMP in AM. Increase PO Lopressor 25mg q6h with hold parameters. Lopressor will be converted to Toprol XL prior to discharge. Will consider addition of ACEI/ARB/ARNI after rhythm/rate control has been achieved. May consider MANUEL/DCCV if unable to pharmacologically convert. Continue Eliquis 5mg BID for CVA prophylaxis. Monitor Plts. Will need ischemic eval once clinically stable in light of newly reduced LVEF. Recommend also outpatient Pulm eval/sleep study. Pt seen in conjunction with Dr. Ermelinda Agarwal, who agrees with the assessment and plan of care. - Patient Problems (1) Atrial flutter Current Visit: Yes Status: Acute Qualifiers: Qualified Code(s): I48.92 - Unspecified atrial flutter (2) Cardiomyopathy Current Visit: Yes Status: Acute (3) History of cocaine use Current Visit: Yes Status: Chronic (4) HIV infection Current Visit: Yes Status: Chronic Qualifiers: HIV symptom status: unspecified Qualified Code(s): B20 - Human immunodeficiency virus [HIV] disease (5) Hypertension Current Visit: Yes Status: Chronic Qualifiers: Hypertension type: primary hypertension Qualified Code(s): I10 - Essential (primary) hypertension (6) Obesity Current Visit: Yes Status: Chronic Subjective Date of service: 12/22/21 Principal diagnosis: AFlutter with RVR Interval history: No cardiac complaints. Still in AFlutter 110-120s on tele at rest. Objective Vital Signs Temp Pulse Resp BP Pulse Ox 12/22/21 12:52 125 H 12/22/21 11:52 98.1 F 127 H 18 156/113 97 12/22/21 10:00 96 12/22/21 09:53 99 12/22/21 07:51 98.0 F 124 H 18 142/98 97 12/22/21 03:17 97.5 F L 120 H 20 134/102 95 08/20/22 23:38 98.3 F 125 H 20 151/112 96 12/21/21 22:35 100 12/21/21 22:00 96 12/21/21 21:30 120 H 145/108 12/21/21 19:47 97.9 F 127 H 18 131/97 100 12/21/21 17:18 98.4 F 18 158/122 - Physical Examination General: No Apparent Distress HEENT: Positive: EOMI, Normocephaly Neck: Negative: JVD/HJR Cardiac: Positive: irregularly irregular, S1/S2 Lungs: Positive: clear to auscultation Neuro: Positive: Grossly Intact Abdomen: Positive: Soft. Negative: Tender Skin: Negative: Rash Musculoskeletal: No Pain Extremities: Present: +1 Edema, warm - Labs and Meds Coagulation 12/21/21 Range/Units 21:09 PT 15.2 H (12.2-14.9) Sec. INR 1.08 (0.87-1.13) APTT 28.7 (24.2-36.6) Sec. - Imaging and Cardiology EKG: report reviewed, image reviewed Echo: pending, other (04/2020: EF 60-65%, no significant valvular abnormalities) - Telemetry EKG Rhythm: Atrial Flutter - EKG Supraventricular dysrhythmia: atrial flutter
[2021-12-22] MEDS ORDERED: AMIODARONE 150 MG in DEXTROSE 5% IN WATER 97 ML IV ONE (15:00)
[2021-12-22] MEDS: METOPROLOL TARTRATE 25 MG TAB PO SCH (16:55)
[2021-12-22] MEDS: AMIODARONE 900 MG in DEXTROSE 5% IN WATER 482 ML IV SCH (23:00)
[2021-12-23] MEDS: METOPROLOL TARTRATE 25 MG TAB PO SCH ×2 (06:40)
[2021-12-23 06:44] LABS: Hemoglobin 13.4 gm/dl (11.8-15.2); Mean Corpuscular HGB Conc 33 % (32-34); Mean Corpuscular Volume 98 fl (84-94); Platelet Count 150 K/mm3 (140-440); Red Blood Count 4.19 M/mm3 (3.65-5.03); Red Cell Distribution Width 15.3 % (13.2-15.2)
--- NOTE | 2021-12-23 06:49 | XRay Report ---
CHEST 1 VIEW INDICATION / CLINICAL INFORMATION: Shortness of breath. COMPARISON: Chest x-ray 12/20/2021 FINDINGS: SUPPORT DEVICES: None. HEART / MEDIASTINUM: Heart size is within normal limits. Mediastinal contour demonstrates no signific ant abnormality. LUNGS / PLEURA: Minimal increased interstitial markings bilaterally within the lower chest. Upper gt gs clear. BONES: No significant osseous abnormality. ADDITIONAL FINDINGS: No significant additional findings. IMPRESSION: 1. Minimal pulmonary edema suggested. Signer Name: Tristan Perdue II, MD Signed: 12/23/2021 6:45 AM Workstation Name: [id number]
[2021-12-23 06:59] LABS: Alanine Aminotransferase 44 units/L (7-56); Albumin 4.3 g/dL (3.9-5); BUN/Creatinine Ratio 12; Blood Urea Nitrogen 13 mg/dL (9-20); Hemolysis Index 15
--- NOTE | 2021-12-23 07:37 | Progress Note ---
Assessment and Plan Assessment and plan: #Atrial flutter w/ RVR -metoprolol increased to 100m mg BID and amiodarone converted to drip -Echocardiogram 12/22: EF 25-30%, severely dilated LA, moderate pulmonary HTN -continue telemetry -continue eliquis for anticoagulation -if HR not controlled, plan for MANUEL cardioversion tomorrow by Cardiology -Cardiology following, assistance appreciated #Acute Systolic heart failure, new onset -EF 25-30% -continue BB, will leave GDMT decision to Cardiology -patient with respiratory failure requiring oxygen -will give lasix IV 40 once -will continue to monitor -will require ischemic evaluation outpatient #Acute hypoxic respiratory failure #moderate pulmonary HTN -patient on 3LNC, no O2 requirement at home -CXR shows pulmonary congestion -will give 1 dose of lasix 40IV to assess for improvement -will need sleep study as outpatient to rule out RHONDA #Hypertension -patient take takes HCTZ at home, lisinopril discontinued when he was started on metoprolol XL -will hold HCTZ for now -continue BB as above -will continue to monitor #HIV -Restart Biktarvy at home dose #Obesity #Weight loss counseling #Exercise counseling - Counseled patient on the importance of weight loss, incorporating exercise, and dietary changes (lean meats, fresh fruits and vegetables, and water intake). Patient expresses understanding. - Time: +15 min #Advanced care planning -Disease education conducted, care plan discussed, diagnoses discussed, prognosis discussed, and patient acknowledges understanding with care plan -Time: +30 min History Interval history: Reports waking up with chest heaviness and shortness of breath around 5:30 AM this morning. He also endorses shortness of breath with lying flat. Patient seen and examined at bedside with cardiology and RN. He was updated about curre nt care plan. He has no other complaints at this time. Hospitalist Physical - Physical exam Narrative exam: GENERAL: Well-developed well-nourished. Sitting on the side of the bed in no acute distress. HEENT: Normocephalic. Atraumatic. NECK: Supple. CHEST/LUNGS: CTAB on room air HEART/CARDIOVASCULAR: Tachycardia. No murmur, rubs or gallops appreciated. ABDOMEN: +BS. NT/ND. SKIN: No rashes noted. NEURO: No focal motor deficit. Follows all commands. MUSCULOSKELETAL: No joint effusion EXTREMITIES: No cyanosis, clubbing. 1+ edema of BLE PSYCH: Cooperative. - Constitutional Vitals: Temp Pulse Resp BP Pulse Ox 99.4 F 116 H 20 159/115 87 12/23/21 04:45 12/23/21 04:45 12/23/21 04:45 12/23/21 04:45 12/23/21 04:45 General appearance: Present: no acute distress HEART Score - HEART Score EKG: Normal Age: 45-65 Risk factors: 1-2 risk factors Troponin: Troponin T < 0.010 ng/mL (0.00-0.029) 12/23/21 06:20 Troponin: < normal limit - Critical Actions Critical Actions: 0-3 pts:0.9-1.7%risk of adverse cardiac event.Candidate for discharge Results - Labs CBC & Chem 7: 12/23/21 06:20 12/23/21 06:20 Labs: Laboratory Last Values WBC 7.7 K/mm3 (4.5-11.0) 12/23/21 06:20 RBC 4.19 M/mm3 (3.65-5.03) 12/23/21 06:20 Hgb 13.4 gm/dl (11.8-15.2) 12/23/21 06:20 Hct 41.0 % (35.5-45.6) 12/23/21 06:20 MCV 98 fl (84-94) H 12/23/21 06:20 MCH 32 pg (28-32) 12/23/21 06:20 MCHC 33 % (32-34) 12/23/21 06:20 RDW 15.3 % (13.2-15.2) H 12/23/21 06:20 Plt Count 150 K/mm3 (140-440) 12/23/21 06:20 Lymph % (Auto) 35.8 % (13.4-35.0) H 12/20/21 12:35 Tyler % (Auto) 7.2 % (0.0-7.3) 12/20/21 12:35 Eos % (Auto) 2.8 % (0.0-4.3) 12/20/21 12:35 Baso % (Auto) 0.7 % (0.0-1.8) 12/20/21 12:35 Lymph # (Auto) 1.5 K/mm3 (1.2-5.4) 12/20/21 12:35 Tyler # (Auto) 0.3 K/mm3 (0.0-0.8) 12/20/21 12:35 Eos # (Auto) 0.1 K/mm3 (0.0-0.4) 12/20/21 12:35 Baso # (Auto) 0.0 K/mm3 (0.0-0.1) 12/20/21 12:35 Seg Neutrophils % 53.5 % (40.0-70.0) 12/20/21 12:35 Seg Neutrophils # 2.2 K/mm3 (1.8-7.7) 12/20/21 12:35 PT 15.2 Sec. (12.2-14.9) H 12/21/21 21:09 INR 1.08 (0.87-1.13) 12/21/21 21:09 APTT 28.7 Sec. (24.2-36.6) 12/21/21 21:09 D-Dimer 199.59 ng/mlDDU (0-234) 12/23/21 06:20 Sodium 138 mmol/L (137-145) D 12/23/21 06:20 Potassium 4.2 mmol/L (3.6-5.0) 12/23/21 06:20 Chloride 106.4 mmol/L (98-107) 12/23/21 06:20 Carbon Dioxide 24 mmol/L (22-30) 12/23/21 06:20 Anion Gap 12 mmol/L 12/23/21 06:20 BUN 13 mg/dL (9-20) 12/23/21 06:20 Creatinine 1.1 mg/dL (0.8-1.3) 12/23/21 06:20 Estimated GFR > 60 ml/min 12/23/21 06:20 BUN/Creatinine Ratio 12 % 12/23/21 06:20 Glucose 164 mg/dL (75-100) H 12/23/21 06:20 Calcium 9.0 mg/dL (8.4-10.2) 12/23/21 06:20 Magnesium 2.40 mg/dL (1.7-2.3) H 12/20/21 19:52 Total Bilirubin 1.00 mg/dL (0.1-1.2) 12/23/21 06:20 AST 38 units/L (5-40) 12/23/21 06:20 ALT 44 units/L (7-56) 12/23/21 06:20 Alkaline Phosphatase 108 units/L (35-129) 12/23/21 06:20 Troponin T < 0.010 ng/mL (0.00-0.029) 12/23/21 06:20 Total Protein 7.5 g/dL (6.3-8.2) 12/23/21 06:20 Albumin 4.3 g/dL (3.9-5) 12/23/21 06:20 Albumin/Globulin Ratio 1.3 % 12/23/21 06:20 TSH 0.954 mlU/mL (0.270-4.200) 12/20/21 19:52 Free T4 1.17 ng/dL (0.76-1.46) 12/20/21 19:52 Urine Color Yellow (Yellow) 12/20/21 12:42 Urine Turbidity Clear (Clear) 12/20/21 12:42 Specific Dingess (Man) 1.010 (1.003-1.030) 12/20/21 12:42 Ur Protein (Man) 1+ mg/dL (Negative) 12/20/21 12:42 Ur Ketones (Man) Negative (Negative) 12/20/21 12:42 Urine Bilirubin (Man) Negative (Negative) 12/20/21 12:42 Urine WBC (Auto) < 1.0 /HPF (0.0-6.0) 12/20/21 12:42 Urine RBC (Auto) < 1.0 /HPF (0.0-6.0) 12/20/21 12:42 Urine RBC (Manual) Negative (Negative) 12/20/21 12:42 Urine Opiates Screen Negative 12/20/21 12:42 Urine Methadone Screen Negative 12/20/21 12:42 Ur Barbiturates Screen Negative 12/20/21 12:42 Ur Phencyclidine Scrn Negative 12/20/21 12:42 Ur Amphetamines Screen Negative 12/20/21 12:42 U Benzodiazepines Scrn Negative 12/20/21 12:42 Urine Cocaine Screen Negative 12/20/21 12:42 U Marijuana (THC) Screen Negative 12/20/21 12:42 Drugs of Abuse Note Disclamer 12/20/21 12:42 Eaton/IV: Voiding Method Toilet Active Medications - Current Medications Current Medications: Generic Name Dose Route Start Last Admin Trade Name Jonathanq PRN Reason Stop Dose Admin Acetaminophen 650 mg 12/20/21 18:30 Acetaminophen 325 Mg Tab PO Q4H PRN Pain MILD(1-3)/Fever >100.5/TRUONG Apixaban 5 mg 12/21/21 22:00 12/22/21 22:30 Apixaban 5 Mg Tab PO 5 mg Q12HR BRONSON Administration Protocol Dolutegravir Sodium 50 mg 12/22/21 10:00 12/22/21 12:51 Dolutegravir 50 Mg Tab PO 50 mg QDAY BRONSON Administration Emtricitabine 200 mg 12/22/21 10:00 12/22/21 12:48 Emtricitabine 200 Mg Cap PO 200 mg QDAY BRONSON Administration Amiodarone HCl 900 mg/ 500 mls @ 33.333 mls/hr 12/22/21 16:00 12/22/21 23:00 Dextrose IV 0.5 mg/min DIRECT BRONSON 16.667 mls/hr Administration Protocol 1 MG/MIN Metoprolol Tartrate 25 mg 12/22/21 16:00 12/22/21 16:55 Metoprolol Tartrate 25 Mg Tab PO 25 mg Q6HR BORNSON Administration Morphine Sulfate 2 mg 12/20/21 18:30 Morphine 4 Mg/1 Ml Inj IV Q4H PRN Pain , Severe (7-10) Ondansetron HCl 4 mg 12/20/21 18:30 Ondansetron 4 Mg/2 Ml Inj IV Q8H PRN Nausea And Vomiting Oxycodone/Acetaminophen 1 tab 12/20/21 18:30 Oxycodone /Acetaminophen 5-325mg Tab PO Q6H PRN Pain, Moderate (4-6) Sodium Chloride 10 ml 12/20/21 22:00 12/22/21 22:30 Sodium Chloride 0.9% 10 Ml Flush Syringe IV Not Given BID BRONSON Sodium Chloride 10 ml 12/20/21 18:30 Sodium Chloride 0.9% 10 Ml Flush Syringe IV PRN PRN LINE FLUSH Tenofovir Disoproxil Fumarate 300 mg 12/22/21 10:00 12/22/21 12:52 Tenofovir 300 Mg Tab PO 300 mg QDAY BRONSON Administration
[2021-12-23] MEDS ORDERED: FUROSEMIDE 40 MG/4 ML INJ IV NR (09:43)
--- NOTE | 2021-12-23 10:12 | Progress Note ---
Assessment and Plan Pt is a 56-year-old male with a hx of HIV, HTN, obesity, and prior cocaine use who was sent from the office after being scheduled for a stress test but found to be tachycardic ATRIAL FLUTTER WITH RVR Cardiomyopathy Moderate Pulmonary HTN HTN Obesity ?RHONDA HIV+ H/o Cocaine Use Echo 12/20/2021 - severe global LV hypokinesis, EF 25-30%, restrictive physiology, moderate LVH, RV mildly dilated, RVSF moderately reduced, LA severely dilated, RA moderately dilated, moderate TR, RVSP 50-55mmHg, moderate pulm HTN. Plan: Continue IV Amiodarone gtt. Increase to Metoprolol 100mg BID with hold parameters. Lopressor will be converted to Toprol XL prior to discharge. Daily losartan 25 mg p.o. daily Will continue to monitor if heart rate not improved we will plan for MANUEL/DCCV in the a.m. Patient to be n.p.o. after midnight Continue Eliquis 5mg BID for CVA prophylaxis. Monitor Plts. Will need ischemic eval once clinically stable in light of newly reduced LVEF. Recommend also outpatient Pulm eval/sleep study. Patient reports feeling short of breath and lung sounds slightly diminished will initiate 1 dose of IV Lasix Discussed plan of care with patient who verbalized understanding and acknowledgment Pt seen in conjunction with Dr. Ellington who agrees with the assessment and plan of care. - Patient Problems (1) Acute HFrEF (heart failure with reduced ejection fraction) Current Visit: Yes Status: Acute (2) Atrial flutter Current Visit: Yes Status: Acute Qualifiers: Qualified Code(s): I48.92 - Unspecified atrial flutter (3) Cardiomyopathy Current Visit: Yes Status: Acute (4) HIV infection Current Visit: Yes Status: Chronic Qualifiers: HIV symptom status: unspecified Qualified Code(s): B20 - Human immunodeficiency virus [HIV] disease (5) History of cocaine use Current Visit: Yes Status: Chronic (6) Hypertension Current Visit: Yes Status: Chronic Qualifiers: Hypertension type: primary hypertension Qualified Code(s): I10 - Essential (primary) hypertension (7) Obesity Current Visit: Yes Status: Chronic Subjective Date of service: 12/23/21 Principal diagnosis: AFlutter with RVR Interval history: Patient resting in bed reports feeling short of breath and currently on nasal cannula A. fib 110s on monitor Objective Vital Signs Temp Pulse Resp BP BP Pulse Ox 12/23/21 09:47 98 12/23/21 07:36 100.2 F H 113 H 18 154/118 98 12/23/21 06:40 116 H 159/115 12/23/21 04:45 99.4 F 116 H 20 159/115 87 12/23/21 00:25 98.8 F 114 H 18 145/108 99 12/23/21 00:00 114 H 145/108 12/22/21 22:00 100 12/22/21 21:14 97 12/22/21 20:00 98.2 F 117 H 20 143/107 100 12/22/21 16:55 120 H 12/22/21 16:09 124 H 18 142/109 98 12/22/21 13:00 125 H 12/22/21 12:52 125 H 12/22/21 11:52 98.1 F 127 H 18 156/113 97 - Physical Examination General: No Apparent Distress HEENT: Positive: EOMI, Normocephaly Neck: Positive: trachea midline. Negative: JVD/HJR Cardiac: Positive: irregularly irregular Lungs: Positive: Decreased Breath Sounds Neuro: Positive: Grossly Intact Abdomen: Positive: Soft. Negative: Tender Skin: Negative: Rash Musculoskeletal: No Pain Extremities: Present: +1 Edema, warm - Labs and Meds Cardiac Enzymes 12/23/21 Range/Units 06:20 AST 38 (5-40) units/L CBC 12/23/21 Range/Units 06:20 WBC 7.7 (4.5-11.0) K/mm3 RBC 4.19 (3.65-5.03) M/mm3 Hgb 13.4 (11.8-15.2) gm/dl Hct 41.0 (35.5-45.6) % Plt Count 150 (140-440) K/mm3 Comprehensive Metabolic Panel 12/23/21 Range/Units 06:20 Sodium 138 D (137-145) mmol/L Potassium 4.2 (3.6-5.0) mmol/L Chloride 106.4 (98-107) mmol/L Carbon Dioxide 24 (22-30) mmol/L BUN 13 (9-20) mg/dL Creatinine 1.1 (0.8-1.3) mg/dL Glucose 164 H (75-100) mg/dL Calcium 9.0 (8.4-10.2) mg/dL AST 38 (5-40) units/L ALT 44 (7-56) units/L Alkaline Phosphatase 108 (35-129) units/L Total Protein 7.5 (6.3-8.2) g/dL Albumin 4.3 (3.9-5) g/dL - Imaging and Cardiology EKG: report reviewed, image reviewed Echo: report reviewed, other (04/2020: EF 60-65%, no significant valvular abnormalities) - Telemetry EKG Rhythm: Atrial Fibrillation - EKG Supraventricular dysrhythmia: atrial fibrillation
[2021-12-23] MEDS: METOPROLOL TARTRATE 100 MG TAB PO SCH ×2 (10:54→22:41)
[2021-12-23] MEDS: EMTRICITABINE 200 MG CAP PO SCH (10:55)
[2021-12-23] MEDS: APIXABAN 5 MG TAB PO SCH ×2 (10:56→22:41)
[2021-12-23] MEDS: TENOFOVIR 300 MG TAB PO SCH (10:58)
[2021-12-23] MEDS: DOLUTEGRAVIR 50 MG TAB PO SCH (10:58)
[2021-12-23] MEDS: LOSARTAN 25 MG TAB PO SCH (17:26)
[2021-12-23] MEDS: AMIODARONE 900 MG in DEXTROSE 5% IN WATER 482 ML IV SCH (22:41)
[2021-12-24] MEDS ORDERED: SODIUM CHLORIDE 0.9% 500 ML 500 ML ONE (07:11)
[2021-12-24] MEDS ORDERED: propofoL 200 MG/20 ML VIAL IV ONE ×2 (07:11)
[2021-12-24] MEDS ORDERED: LIDOCAINE MPF (2%) 20 MG/1 ML VIAL 5 ML ONE (07:12)
[2021-12-24] MEDS ORDERED: BENZOCAINE 20% TOP SPRAY 0.5 ML UNIT DOSE MM ONE (07:32)
--- NOTE | 2021-12-24 07:38 | Anesthesia Consultation ---
Anesthesia Consult and Med Hx Date of service: 12/24/21 - Airway Anesthetic Teeth Evaluation: Good, Partials (bottom) ROM Head & Neck: Adequate Mental/Hyoid Distance: Adequate Mallampati Class: Class III Intubation Access Assessment: Possibly Difficult - Pre-Operative Health Status ASA Pre-Surgery Classification: ASA3 Proposed Anesthetic Plan: MAC - Pulmonary Hx Smoking: No - Cardiovascular System Hx Hypertension: Yes Hx Cardia Arrhythmia: Yes (atrial tachicardia) - Central Nervous System Hx Back Pain: Yes - Other Systems Hx Alcohol Use: Yes (Several drinks 3-4/week) Hx Substance Use: Yes (h/o cocaine use) Hx Obesity: Yes (Morbid obesity, BMI 36.2) - Additional Comments Anesthesia Medical History Comments: HIV, patients states that viral load is currently undetectable
--- NOTE | 2021-12-24 07:38 | Anesthesia Day of Surgery ---
Anesthesia Day of Surgery - Day of Surgery Patient Examined: Yes Patient H&P Reviewed: Yes Patient is NPO: Yes Beta Blockers: Yes
[2021-12-24] MEDS ORDERED: BENZOCAINE 20% TOP SPRAY 0.5 ML UNIT DOSE MM NR (08:00)
--- NOTE | 2021-12-24 08:25 | Electrocardiograph Report ---
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
[2021-12-24] MEDS ORDERED: METOPROLOL SUCCINATE XL 50 MG TAB PO SCH (10:00)
--- NOTE | 2021-12-24 10:49 | Progress Note ---
Assessment and Plan Pt is a 56-year-old male with a hx of HIV, HTN, obesity, and prior cocaine use who was sent from the office after being scheduled for a stress test but found to be tachycardic ATRIAL FLUTTER WITH RVR Cardiomyopathy Moderate Pulmonary HTN HTN Obesity ?RHONDA HIV+ H/o Cocaine Use Echo 12/20/2021 - severe global LV hypokinesis, EF 25-30%, restrictive physiology, moderate LVH, RV mildly dilated, RVSF moderately reduced, LA severely dilated, RA moderately dilated, moderate TR, RVSP 50-55mmHg, moderate p ulm HTN. Transesophageal echo 12/24/2021-EF 25 to 30%. Right ventricle is mildly hypokinetic. Prominent eustachian valve is noted in the right atrium. Left atrium is severely dilated. No clot in left atrium or left atrial appendage. Normal left pulmonary vein, decreased velocity in BRIANNE. Mild mitral regurgitation. Plan: Patient for MANUEL cardioversion. Patient converted from a flutter to sinus rhythm 70 Will stop amiodarone. Initiate metoprolol XL 50 mg p.o. daily Continue losartan 25 mg p.o. daily Continue Eliquis 5mg BID for CVA prophylaxis. Will plan for ischemic eval as an outpatient Patient to be set up with EP consultation regarding atrial flutter ablation Recommend also outpatient Pulm eval/sleep study. Discussed plan of care with patient who verbalized understanding and acknowledgment Cardiac cath otherwise stable for discharge Patient has a follow-up appoint with Dr. Vero Agarwal, [facility] ventilator specialist, on 01/10/2022 at 1:15 PM in our [place] location. Phone #[phone] Patient to follow-up with Dr. Lakhani, [facility] ventilator specialist, on 01/29/2022 at 10 AM in our [place] location for consultation regarding atrial flutter ablation. Phone #[phone] Pt seen in conjunction with Dr. Ellington who agrees with the assessment and plan of care. - Patient Problems (1) Acute HFrEF (heart failure with reduced ejection fraction) Current Visit: Yes Status: Acute (2) Atrial flutter Current Visit: Yes Status: Acute Qualifiers: Qualified Code(s): I48.92 - Unspecified atrial flutter (3) Cardiomyopathy Current Visit: Yes Status: Acute (4) HIV infection Current Visit: Yes Status: Chronic Qualifiers: HIV symptom status: unspecified Qualified Code(s): B20 - Human immunodeficiency virus [HIV] disease (5) History of cocaine use Current Visit: Yes Status: Chronic (6) Hypertension Current Visit: Yes Status: Chronic Qualifiers: Hypertension type: primary hypertension Qualified Code(s): I10 - Essential (primary) hypertension (7) Obesity Current Visit: Yes Status: Chronic Subjective Date of service: 12/24/21 Principal diagnosis: AFlutter with RVR Interval history: Patient for MANUEL cardioversion this a.m. Previously a flutter 110s on monitor however following procedure patient converted to sinus rhythm 70 Objective Vital Signs Temp Temp Pulse Pulse Pulse Resp Resp 12/24/21 09:56 12/24/21 09:30 71 20 12/24/21 09:15 67 20 12/24/21 09:00 67 21 12/24/21 08:45 64 22 12/24/21 08:30 65 17 12/24/21 08:15 74 15 12/24/21 08:00 60 21 12/24/21 07:45 97.9 F 117 H 12/24/21 06:00 117 H 12/24/21 05:11 99.0 F 117 H 20 12/23/21 23:49 98.6 F 114 H 19 12/23/21 22:39 115 H 12/23/21 21:38 12/23/21 21:15 12/23/21 19:29 117 H 12/23/21 19:00 99.2 F 117 H 12/23/21 17:26 113 H 12/23/21 15:31 98.4 F 110 H 18 12/23/21 11:20 98.4 F 112 H 18 12/23/21 10:54 113 H Resp BP BP BP Pulse Ox Pulse Ox 12/24/21 09:56 96 12/24/21 09:30 138/98 12/24/21 09:15 131/89 12/24/21 09:00 127/86 12/24/21 08:45 125/88 12/24/21 08:30 106/76 12/24/21 08:15 101/72 12/24/21 08:00 92/55 12/24/21 07:45 21 146/108 100 12/24/21 06:00 12/24/21 05:11 146/108 97 12/23/21 23:49 149/110 99 12/23/21 22:39 12/23/21 21:38 99 12/23/21 21:15 100 12/23/21 19:29 142/104 99 12/23/21 19:00 12/23/21 17:26 12/23/21 15:31 131/100 99 12/23/21 11:20 151/113 98 12/23/21 10:54 - Physical Examination General: No Apparent Distress HEENT: Positive: EOMI, Normocephaly Neck: Positive: trachea midline. Negative: JVD/HJR Cardiac: Positive: Reg Rate and Rhythm Lungs: Positive: Normal Breath Sounds Neuro: Positive: Grossly Intact Abdomen: Positive: Soft. Negative: Tender Skin: Negative: Rash Musculoskeletal: No Pain Extremities: Present: warm. Absent: +1 Edema - Labs and Meds Comprehensive Metabolic Panel 12/24/21 Range/Units 05:39 Creatinine 1.0 (0.8-1.3) mg/dL - Imaging and Cardiology EKG: report reviewed, image reviewed Echo: report reviewed, other (04/2020: EF 60-65%, no significant valvular abnormalities) - Telemetry EKG Rhythm: Sinus Rhythm - EKG Sinus rhythms and dysrhythmias: sinus rhythm
[2021-12-24] MEDS: LOSARTAN 25 MG TAB PO SCH (11:13)
[2021-12-24] MEDS: EMTRICITABINE 200 MG CAP PO SCH (11:14)
[2021-12-24] MEDS: APIXABAN 5 MG TAB PO SCH (11:14)
[2021-12-24] MEDS: TENOFOVIR 300 MG TAB PO SCH (11:15)
[2021-12-24] MEDS: DOLUTEGRAVIR 50 MG TAB PO SCH (11:15)
--- NOTE | 2021-12-24 13:15 | Discharge Summary ---
Providers - Providers Date of Admission: 12/20/21 18:32 Date of discharge: 12/24/21 Attending physician: LI TOWNSEND MD 12/20/21 21:34 Consult to Cardiology [CONS] Routine Consulting Provider: ROSALIA AMADOR Reason For Exam: Atrial flutter Primary care physician: CHARLIE CHA Hospitalization Reason for admission: Atrial flutter with RVR Condition: Stable Pertinent studies: Reviewed. Procedures: MANUEL on 12/24/2021 with cardioversion. Hospital course: The patient is a 56 YO Male with HIV Infection, HTN, Peripheral Neuropathy presents to ED for evaluation. Patient reports "my heart is beating fast". 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 Patient was instructed to seek further care at [facility]. Patient seen and evaluated in the emergency department. All lab and imaging studies reviewed. Patient acknowledges decreased exercise tolerance, lower extremity edema. Patient underwent EKG upon arrival to the emergency department and was found to have atrial flutter as well as clinical symptoms consistent with new onset CHF decompensation. Patient mated to telemetry and initiated on CHF protocol. Cardiology team consulted in ED. Patient admitted t o telemetry due to increased risk of worsening symptoms as well as medical stabilization. Patient initiated on rate control therapy as well as therapeutic anticoagulation in the emergency department. Patient underwent TTE revealing EF 25-30% with severe global LV hypokinesis, moderate LVH, mildly dilated RV, severely dilated LA, moderately dilated RA, moderate tricuspid regurg, moderate pulmonary hypertension, and RVSP of 50-55 mmHg. Patient underwent MANUEL on 12/24/2021 revealing EF 25-30%. Patient also underwent cardioversion that converted his a flutter to sinus rhythm at 70 bpm. Amiodarone was discontinued, the patient was initiated on metoprolol succinate 50 mg daily. Patient also being started on Eliquis 5 mg twice daily for stroke prophylaxis. Patient will follow-up with cardiology in outpatient setting to undergo ischemic evaluation in the setting of newly diagnosed heart failure (01/10/2022 at 1:15 PM). Patient is also been recommended to undergo sleep study. Patient is medically cleared for discharge. Disposition: 01 HOME / SELF CARE / HOMELESS Final Discharge Diagnosis (Prints w/discharge instructions): Atrial flutter with RVR, cardiomyopathy, moderate pulmonary hypertension, hypertension, morbid obesity, possible obstructive sleep apnea, HIV, history of cocaine dependence, acute hypoxic respiratory failure Time spent for discharge: 45 min Core Measure Documentation - Palliative Care Palliative Care/ Comfort Measures: Not Applicable - Core Measures Any of the following diagnoses?: heart failure, none - Heart Failure Discharge Requirements SAEED/ARB for LVSD if EF <40%: Yes Beta hayden at discharge: Yes Exam - Constitutional Vitals: Temp Pulse Resp BP Pulse Ox 98.1 F 70 18 133/90 98 12/24/21 10:39 12/24/21 10:39 12/24/21 10:39 12/24/21 10:39 12/24/21 10:39 General appearance: Present: no acute distress, well-nourished, obese - EENT Eyes: Present: PERRL, EOM intact ENT: hearing intact, clear oral mucosa, dentition normal - Neck Neck: Present: supple, normal ROM - Respiratory Respiratory effort: normal Respiratory: bilateral: CTA - Cardiovascular Rhythm: regular Heart Sounds: Present: S1 & S2 - Extremities Extremities: no ischemia, pulses intact, pulses symmetrical, No edema, normal temperature, normal color Peripheral Pulses: within normal limits - Abdominal General gastrointestinal: Present: soft, non-tender, non-distended, normal bowel sounds Male genitourinary: Present: deferred - Rectal Rectal Exam: deferred - Integumentary Integumentary: Present: clear, warm, dry - Musculoskeletal Musculoskeletal: strength equal bilaterally - Psychiatric Psychiatric: appropriate mood/affect, intact judgment & insight, memory intact, cooperative - Neurologic Neurologic: CNII-XII intact, moves all extremities - Allied Health Allied health notes reviewed: nursing, case management Plan Activity: advance as tolerated Diet: low salt Special Instructions: restrict fluid intake to (2 L/day) Additional Instructions: The patient is a 56 YO Male with HIV Infection, HTN, Peripheral Neuropathy presents to ED for evaluation. Patient reports "my heart is beating fast". 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 Patient was instructed to seek further care at [facility]. Patient seen and evaluated in the emergency department. All lab and imaging studies reviewed. Patient acknowledges decreased exercise tolerance, lower extremity edema. Patient underwent EKG upon arrival to the emergency department and was found to have atrial flutter as well as clinical symptoms consistent with new onset CHF decompensation. Patient mated to telemetry and initiated on CHF protocol. Cardiology team consulted in ED. Patient admitted to telemetry due to increased risk of worsening symptoms as well as medical stabilization. Patient initiated on rate control therapy as well as therapeutic anticoagulation in the emergency department. Patient underwent TTE revealing EF 25-30% with severe global LV hypokinesis, moderate LVH, mildly dilated RV, severely dilated LA, moderately dilated RA, moderate tricuspid regurg, moderate pulmonary hypertension, and RVSP of 50-55 mmHg. Patient underwent MANUEL on 12/24/2021 revealing EF 25-30%. Patient also underwent cardioversion that converted his a flutter to sinus rhythm at 70 bpm. Amiodarone was discontinued, the patient was initiated on metoprolol succinate 50 mg daily. Patient also being started on Eliquis 5 mg twice daily for stroke prophylaxis. Patient will follow-up with cardiology in outpatient setting to undergo ischemic evaluation in the setting of newly diagnosed heart failure (01/10/2022 at 1:15 PM). Patient is also been recommended to undergo sleep study. Patient is medically cleared for discharge. Care Plan Goals: Patient is medically clear for discharge. Assessment: The patient is a 56 YO Male with HIV Infection, HTN, Peripheral Neuropathy presents to ED for evaluation. Patient reports "my heart is beating fast". 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 Patient was instructed to seek further care at [facility]. Patient seen and evaluated in the emergency department. All lab and imaging studies reviewed. Patient acknowledges decreased exercise tolerance, lower extremity edema. Patient underwent EKG upon arrival to the emergency department and was found to have atrial flutter as well as clinical symptoms consistent with new onset CHF decompensation. Patient mated to telemetry and initiated on CHF protocol. Cardiology team consulted in ED. Patient admitted to telemetry due to increased risk of worsening symptoms as well as medical stabilization. Patient initiated on rate control therapy as well as therapeutic anticoagulation in the emergency department. Patient underwent TTE revealing EF 25-30% with severe global LV hypokinesis, moderate LVH, mildly dilated RV, severely dilated LA, moderately dilated RA, moderate tricuspid regurg, moderate pulmonary hypertension, and RVSP of 50-55 mmHg. Patient underwent MANUEL on 12/24/2021 revealing EF 25-30%. Patient also underwent cardioversion that converted his a flutter to sinus rhythm at 70 bpm. Amiodarone was discontinued, the patient was initiated on metoprolol succinate 50 mg daily. Patient also being started on Eliquis 5 mg twice daily for stroke prophylaxis. Patient will follow-up with cardiology in outpatient setting to undergo ischemic evaluation in the setting of newly diagnosed heart failure (01/10/2022 at 1:15 PM). Patient is also been recommended to undergo sleep study. Patient is medically cleared for discharge. Follow up with: CHARLIE CHA MD [Primary Care Provider] - 3-5 Days PRINCESS STEEL MD [Staff Physician] - 01/10/22 1:15 pm Forms: Work/School Release Form Prescriptions: Losartan [Cozaar] 25 mg PO QDAY #30 tablet Apixaban [Eliquis] 5 mg PO Q12HR #60 tablet Metoprolol Xl [Metoprolol SUCCINATE ER TAB] 50 mg PO QDAY #30 tablet
--- NOTE | 2021-12-24 13:40 | Electrocardiograph Report ---
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
--- NOTE | 2021-12-24 13:40 | Electrocardiograph Report ---
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
[2021-12-24 17:27] VITALS: BP 130/87
--- NOTE | 2021-12-26 09:42 | Electrocardiograph Report ---
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
== END 2021-12-24 18:00 | disposition home or self-care (01) | DRG 308 ==
LOC: CARD 09:17 → ED 09:17 → 4A 18:32
PROVIDERS: ADMIT Internal Medicine; ATTEND Student in an Organized Health Care Education/Training Program
PROC: 5A2204Z Restoration of Cardiac Rhythm, Single (ICD-10-PCS; principal; 2021-12-24)
DX: I48.92 Unspecified atrial flutter (principal); I50.21 Acute systolic (congestive) heart failure; J96.01 Acute respiratory failure with hypoxia; B20 Human immunodeficiency virus [HIV] disease; I11.0 Hypertensive heart disease with heart failure; I47.1 Supraventricular tachycardia; I42.9 Cardiomyopathy, unspecified; E66.9 Obesity, unspecified; Z68.36 Body mass index [BMI] 36.0-36.9, adult; I27.20 Pulmonary hypertension, unspecified; Z79.899 Other long term (current) drug therapy; G62.9 Polyneuropathy, unspecified; Z83.3 Family history of diabetes mellitus; Z82.49 Family history of ischemic heart disease and other diseases of the circulatory system; Z95.1 Presence of aortocoronary bypass graft; Z98.61 Coronary angioplasty status; Z71.3 Dietary counseling and surveillance
CPT/HCPCS: 36415; 71045; 71046; 80048; 80053; 80307; 81001; 82565; 83735; 84439; 84443; 84484; 85025; 85027; 85379; 85610; 85730; 93005; 93306; 93312; 93320; 93325; 94760; 99285; G0378; J3490; J7060; C8929; J0282; J2704; J7030; J7040